=== PATIENT | female | born 1945 | race Caucasian/White ===

== ENCOUNTER 2022-08-23 13:04 | Outpatient (CLI) | payer MEDICARE, SELFPAY ==
--- NOTE | ~2022-08-23 | US_ITS ---
EXAMINATION: US carotid duplex BI DATE: 08/23/2022 14:16 INDICATION: Stroke. Carotid stenosis. Dizziness. TECHNIQUE: Grayscale, color Doppler, and pulsed Doppler images of the cervical carotid arteries were obtained. The degree of vessel stenosis is placed in one of the following categories: normal, <50%, 5 0-69%, >=70% but less than near-occlusion, near-occlusion, or total occlusion. Note that percent sten osis relative to normal distal artery lumen diameter is indirectly measured from velocity measurement s as described by Manjeet, et al. Radiology 2003; 229:340-346. COMPARISON: None. FINDINGS: RIGHT: The right common carotid artery (CCA) peak systolic velocity (PSV) is 69 cm/s. The right internal car otid artery (ICA) PSV is 110 cm/s. The right ICA end-diastolic velocity (EDV) is 19 cm/s. The right I CA/CCA PSV ratio is 1.6. Grayscale and color Doppler images yield an estimate of <50% diameter reduct ion from plaque in the ICA. The external carotid artery (ECA) PSV is 83 cm/s. There is antegrade flow in the right vertebral artery. LEFT: The left CCA PSV is 100 cm/s. The left ICA PSV is 175 cm/s. The left ICA EDV is 44 cm/s. The left ICA /CCA PSV ratio is 1.8. Grayscale and color Doppler images yield an estimate of 50-69% diameter reduct ion from plaque in the ICA. The ECA PSV is 58 cm/s. There is antegrade flow in the left vertebral art lani. IMPRESSION: 1. <50% stenosis in the right internal carotid artery. 2. 50-69% stenosis in the left internal carotid artery. Reviewed, dictated and finalized at location A.
== END 2022-08-23 13:05 | disposition home or self-care (01) ==
LOC: ANHIMG 13:11
PROVIDERS: PCP Family Medicine Sports Medicine; Visit Provider Internal Medicine Cardiovascular Disease
DX: I65.23 Occlusion and stenosis of bilateral carotid arteries (principal); R42 Dizziness and giddiness; Z86.73 Personal history of transient ischemic attack (TIA), and cerebral infarction without residual deficits
CPT/HCPCS: 93880

== ENCOUNTER 2022-10-03 16:22 | Observation (INO) | payer MEDICARE, SELFPAY ==
[2022-10-03] VITALS (36 sets, daily range): BP systolic 73–129; BP diastolic 40–100; PULSE 63–94; RESP 14–25; TEMP 36.5–36.7; O2SAT 95–100; BMI 23.2
--- NOTE | ~2022-10-03 | XR_ITS ---
Portable chest x-ray Comparison: None Clinical History: Weakness Findings: Probable prior right lung resection. No consolidation or pleural effusion evident. No pneu mothorax. Cardiomediastinal silhouette is unremarkable. Bones and soft tissues are unremarkable. Impression: No acute abnormality evident. Probable prior partial right lung resection. Correlate with surgical history. Reviewed, dictated and finalized at [facility]. Impression: No acute abnormality evident. Probable prior partial right lung resection. Correlate with surgical history.
--- NOTE | 2022-10-03 16:42 | ECG_ITS ---
Measurements Intervals [place] Rate: 72 P: 64 IA: 165 QRS: 54 QRSD: 89 T: 80 QT: 428 QTc: 470 Interpretive Statements SINUS RHYTHM POSSIBLE LEFT ATRIAL ENLARGEMENT [-0.1mV P-WAVE IN V1/V2] SEPTAL MYOCARDIAL INFARCTION , OF INDETERMINATE AGE [40+ ms Q WAVE IN V1/V2] ABNORMAL ECG NO PREVIOUS ECG AVAILABLE FOR COMPARISON Electronically Signed On 10-04-2022 10:37:01 CDT by Michael Lambert M.D.
--- NOTE | 2022-10-03 16:55 | ED.WEAKNESS ---
HPI - Weakness General Chief complaint: Weakness Stated complaint: weakness/ strep pos Time Seen by Provider: 10/03/22 16:42 Source: patient and RN notes reviewed Mode of arrival: ambulatory Limitations: no limitations History of Present Illness HPI Narrative: This is a 76 year old female with history of heart disease, lung cancer, hypertension who presents for evaluation of weakness. Her family is at bedside to assist with history. They report patient has been reporting cough , congestion and sore throat on Tuesday. They took patient to [facility] urgent care today because patient reported weakness, and she was found to have low BP and positive for strep. Patient reports cough for 6 months. She denies chest pain, shortness of breath, abdominal pain, nausea and vomiting. She reports previous history of CHF and high blood pressure but she has not taken any medication today. Related Data Allergies Allergy/AdvReac Type Severity Reaction Status Date / Time No Known Allergies Allergy Verified 10/03/22 16:30 Review of Systems Review of Systems: All systems reviewed & are unremarkable except as noted in HPI and below PMFSH Past Medical History Medical History (Updated 10/03/22 @ 22:20 by Briana Robles MD) Congestive heart failure Hypertension Lung cancer Social History Social History (Updated 10/03/22 @ 17:01 by Briana Robles MD) Smoking status: Never smoker Exam Const: General: no acute distress Orientation/consciousness: patient oriented x3 HENMT: Head: normal to inspection Face and sinus: normal facial exam Throat: posterior oropharynx normal and uvula midline Eyes: EOM: EOMs intact bilaterally Chest: Chest palpation & inspection: normal inspection of the chest Resp: Effort & Inspection: normal respiratory effort Auscultation: diminished lung sounds Cardio: Rate: regular rate Rhythm: regular rhythm Heart sounds: Murmur heart sound present GI: GI Palp: Yes Soft to palpation, No Tenderness to palpation present (GI), No Guarding due to palpation present (GI) and No Rigid due to palpation Auscultation: normal bowel sounds Neuro: General: patient oriented x3, moves all extremities and CN's II-XI intact bilaterally Extrem: General: normal to inspection and no edema Psych: Mental Status: mental status grossly normal Affect: normal affect Attitude: cooperative Course Consultations Consultation #1: I Discussed case with Dr. hogan. PAtient presented with weakness. Given 30 ml/kg bolus and BP has normalized and it has remained normal. She accepts patient to [facility] Date: 10/03/22 Time: 20:20 Vital Signs Vital signs: Vital Signs Temperature 98.1 F 10/03/22 16:25 Pulse Rate 94 10/03/22 16:25 Respiratory Rate 16 10/03/22 16:25 Blood Pressure 84/56 L 10/03/22 16:25 Pulse Oximetry 96 10/03/22 16:25 Temperature 98.1 F 10/03/22 16:25 Pulse Rate 69 10/03/22 21:19 Respiratory Rate 18 10/03/22 21:19 Blood Pressure 129/67 10/03/22 21:19 Pulse Oximetry 99 10/03/22 21:19 MDM - Weakness MDM Narrative Medical decision making narrative: Patient presented with weakness and hypotension. sepsis order set placed. Patient with mild leukocytosis and lactic acidosis of 2.2. STarted on NS bolus 30ml/kg bolus. given total 1900 ml which normalized patient's blood pressure, lactic acidosis resolved. UA shows UTI with positive nitrate, LE 2 + and 51-100 wbc. blood cultures drawn. and started on rocephin 1 g Differential Diagnosis Differential diagnosis: Likely acute myocardial infarction, hypoglycemia, sepsis, dehydration and other (UTI, pneumonia, covid) Medical Records Attestation: I reviewed the patient's medical records. Lab Data Attestation: I reviewed the patient's lab results. 10/03/22 16:45 10/03/22 16:45 Labs: Lab Results 10/03/22 10/03/22 10/03/22 Range/Units 16:45 17:17 18:39 WBC 11.6 H (4.5-10.0) K/mm3 RBC 4.0
[2022-10-03 16:59] LABS: Basophils Absolute Auto 0.1 K/mm3 (0.0-0.1); Basophils Percent Auto 0.4 % (0.2-1.2); Eosinophils Absolute Auto 0.3 K/mm3 (0-0.3); Eosinophils Percent Auto 2.2 % (0-4.4); Hematocrit 38.5 % (37.0-47.0); Hemoglobin 12.4 g/dL (12.0-15.0); Immature Granulocyte Absolute 0.05 K/mm3 (0.00-0.031); Immature Granulocyte Percent A 0.4 % (0-0.5); Lymphocytes Absolute Auto 2.31 K/mm3 (0.9-3.2); Lymphocytes Percent Auto 19.9 % (18.3-44.2); Mean Corpuscular HGB Conc 32.2 g/dl (32-36); Mean Corpuscular Hemoglobin 30.5 pg (26-34); Mean Corpuscular Volume 94.6 fl (80-100); Monocytes Absolute Auto 1.2 K/mm3 (0.1-0.6); Monocytes Percent Auto 10.2 % (2.6-8.5); Neutrophils Absolute Auto 7.8 K/mm3 (1.3-6.7); Neutrophils Percent Auto 66.9 % (45.5-73.1); Platelet Count Result 224 k/mm3 (150-375); Red Blood Count 4.07 M/mm3 (4.2-5.4); Red Cell Distribution Width 13.6 % (11.5-14.5); White Blood Count 11.6 K/mm3 (4.5-10.0)
[2022-10-03 17:06] LABS: Lactic Acid Reflex 2.2 mmol/L (0.7-2.0)
[2022-10-03 17:10] LABS: Alanine Aminotransferase 15 U/L (6-35); Albumin Level 3.9 g/dL (3.5-5.1); Alkaline Phosphatase 72 U/L (38-126); Anion Gap 6 mmol/L (8-16); Aspartate Amino Transferase 23 U/L (14-36); Bilirubin,Total 0.7 mg/dL (0.2-1.3); Blood Urea Nitrogen 8 mg/dL (7-17); CRP 4.2 mg/dL (<1.0); Calcium 8.3 mg/dL (8.4-10.2); Carbon Dioxide 28 mmol/L (22-30); Chloride 104 mmol/L (98-107); Estimated CRCL calculation 41 ml/min; Estimated Glomerular Filt Rate > 60; Glucose 112 mg/dL (65-110); Potassium 3.6 mmol/L (3.4-5.0); Sodium 138 mmol/L (137-145)
[2022-10-03 17:43] LABS: INR 0.9; Prothrombin Time 12.6 Seconds (11.1-14.7)
[2022-10-03 17:44] LABS: Partial Thromboplastin Time 30.4 SECONDS (22.3-36.8)
[2022-10-03 17:46] LABS: NT Pro B Type Natriuretic Pept 340 pg/mL (19.9-100); Troponin I < 0.012 ng/mL (0.000-0.034)
[2022-10-03 18:00] LABS: Influenza A QL RT-PCR Negative (Negative); Influenza B QL RT-PCR Negative (Negative); SARS-CoV-2 RNA PCR Negative (Negative)
[2022-10-03 19:34] LABS: Appearance Urine Cloudy (Clear); Bacteria Urine 4+ /hpf; Bilirubin Urine Negative (Negative); Blood Urine Trace (Negative); Color Urine Yellow (Yellow); Glucose Urine UA Negative (Negative); Ketones Urine Negative (Negative); Leukocyte Esterase Ur 2+ LEU/UL (Negative); Nitrate Urine Positive (Negative); Non Pathogenic Casts 0-2; Protein Urine Trace mg/dL (Negative); RBC Urine 0-2 /hpf (0-2); Specific Grav Ur 1.015 (1.001-1.035); Squamous Epithelial Cell Urine Occasional /hpf (Few); Urobilinogen Urine 0.2 mg/dL (<2.0); WBC Urine 51-100 /hpf; pH Urine 5.5 (5.0-9.0)
[2022-10-03 19:35] LABS: Add Urine Microscopic? YES
[2022-10-03] MEDS: SODIUM CHLORIDE 0.9% IV 1,000 ML 150 ML IV CONT (19:50)
[2022-10-03 19:55] LABS: Reflex Lactic Acid Yes or No Add Lactic
--- NOTE | 2022-10-03 20:22 | PC.NURSE ---
Pt received a total of 1900ml NS bolus. MAR unable to reflect this correctly and pharmacy unable to assist.
[2022-10-03 21:02] LABS: Lactic Acid 1.3 mmol/L (0.7-2.0)
--- NOTE | 2022-10-03 22:46 | ADMGEN ---
This patient, Angela Judd, was admitted to Medical Room 340-01. Patient/family oriented to hospital policies and general routines including ID bracelet, bed and alarms, visiting hours, pain management, procedures, bathroom and other care routines, personal items, smoking policy, room service/diet, and visiting hours. Information on how to activate the Rapid Response Team has been discussed. Patient/Family are encouraged to report perceived risks to care and to ask questions if they do not understand what they are told or what they should do.
[2022-10-04] VITALS: PULSE 78
--- NOTE | 2022-10-04 01:49 | PM.IMHP ---
H&P: HPI History of Present Illness Date/Time: 10/03/22 23:50 Chief Complaint: Cough and sore throat Narrative: 76-year-old female past medical history of mild dementia, COPD, lung cancer status post resection, essential hypertension, CVA, carotid stenosis and coronary artery disease who presented to the ER from a local urgent care accompanied by family due to cough sore throat and increased weakness. The patient reports that she has been feeling ill for about 3 weeks per the patient's report but only for 3 days per family report. ER note states the patient has been having persistent cough for 6 months as well. Where the patient reports the cough is been only for 3 weeks. She has had increased postnasal drip from baseline with associated cough. Cough is nonproductive and mild. She denies any shortness of breath or chest pain. She has not been having any fevers or chills. She does report shortness of breath. 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 Her family to [facility] urgent care for evaluation. At urgent care she was found to be hypotensive. They also checked a rapid strep which was found to be positive. The patient reports that last time she was diagnosed with strep it was many years ago. She denies any lightheadedness, nausea, vomiting or changes in bowel habits. She denies any urinary frequency or urgency. She does report a sensation of incomplete bladder emptying. On exam patient did have a palpable bladder but bladder scan only demonstrated 190 mL. She felt bad enough that she had not taken any of her home medications prior to coming to urgent care. Despite not taking her antihypertensives the patient was hypotensive on arrival to the ER with blood pressures as low as 73/40. She received 30 mL/kilos fluid bolus with improvement in her blood pressures up to the 120s over 60s. The family reports that the patient does have chronically low blood pressures in her usual blood pressure at home is usually in the 90 systolic. She reports that her weight is been stable. She states that she is disappointed that since she was diagnosed with all of her medical problems that she did not lose 5 lb. She reports that all of her friends who have been diagnosed with similar medical conditions have lost a significant amount of weight. She denies any recent ill contacts. She reports that she has been having difficulty with postnasal drip and has not felt quite herself ever since she caught COVID in April. She reports a fair appetite. She reports that she has chronically chilled all the time. She denies any known fevers. At the time of my evaluation the patient is alert oriented x4 in seems to be a good historian. 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 She reports that she recently moved down here from near [place] about 3 months ago. She is currently living with her ex- her son and her [id number] (or daughter). She states that they create a very stressful environment for her and yell at her frequently. She had a master's degree in the went back to school late in life to get her law degree. 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 Review of Systems Review of Systems: 12 systems were reviewed with pertinent positives and negatives per HPI. Except as documented in the HPI, all other systems were reviewed and are negative. [facility] Past Medical History Medical History (Updated 10/04/22 @ 02:16 by Jannie Mejía, DO) Carotid stenosis Carotid Dopplers 08/2022: Less than 50% stenosis right internal carotid 50-69% stenosis left internal carotid Chronic lower back pain Congestive heart failure COPD with emphysema Central lobar Coronary artery disease CVA (cerebral vascular accident) (~20
[2022-10-04] MEDS: ZOLPIDEM TARTRATE (*CRX) 5 MG TABLET 10 MG PO (02:00)
[2022-10-04] MEDS: diphenhydrAMINE HCl CAP 25 MG CAPSULE PO (02:02)
[2022-10-04] MEDS: SODIUM CHLORIDE 0.9% IV 1,000 ML 125 ML IV CONT (02:03)
[2022-10-04] MEDS: traMADol HCL (*CRX) 50 MG TABLET PO (02:57)
[2022-10-04 04:00] VITALS: PULSE 83
[2022-10-04 05:38] VITALS: BP 138/84; PULSE 75; RESP 14; TEMP 37.1; O2SAT 99
[2022-10-04 05:42] LABS: Basophils Percent Auto 0.3 % (0.2-1.2); Eosinophils Absolute Auto 0.2 K/mm3 (0-0.3); Eosinophils Percent Auto 2.4 % (0-4.4); Hematocrit 35.3 % (37.0-47.0); Hemoglobin 11.2 g/dL (12.0-15.0); Immature Granulocyte Absolute 0.03 K/mm3 (0.00-0.031); Immature Granulocyte Percent A 0.3 % (0-0.5); Lymphocytes Absolute Auto 2.11 K/mm3 (0.9-3.2); Lymphocytes Percent Auto 21.3 % (18.3-44.2); Mean Corpuscular HGB Conc 31.7 g/dl (32-36); Mean Corpuscular Volume 94.6 fl (80-100); Mean Platelet Volume 10.7 fl (7.4-10.4); Monocytes Absolute Auto 0.9 K/mm3 (0.1-0.6); Monocytes Percent Auto 9.3 % (2.6-8.5); Neutrophils Absolute Auto 6.6 K/mm3 (1.3-6.7); Neutrophils Percent Auto 66.4 % (45.5-73.1); Platelet Count Result 189 k/mm3 (150-375); Red Blood Count 3.73 M/mm3 (4.2-5.4); Red Cell Distribution Width 13.4 % (11.5-14.5); White Blood Count 9.9 K/mm3 (4.5-10.0)
[2022-10-04 05:53] LABS: Alanine Aminotransferase 12 U/L (6-35); Albumin Level 3.3 g/dL (3.5-5.1); Alkaline Phosphatase 70 U/L (38-126); Anion Gap 5 mmol/L (8-16); Aspartate Amino Transferase 18 U/L (14-36); Bilirubin,Total 0.7 mg/dL (0.2-1.3); Blood Urea Nitrogen 5 mg/dL (7-17); Calcium 7.6 mg/dL (8.4-10.2); Carbon Dioxide 24 mmol/L (22-30); Chloride 110 mmol/L (98-107); Estimated CRCL calculation 52 ml/min; Estimated Glomerular Filt Rate > 60; Glucose 102 mg/dL (65-110); Potassium 3.9 mmol/L (3.4-5.0); Sodium 139 mmol/L (137-145)
[2022-10-04] MEDS: DEXTROMETHORPHAN POLISTIREX 60 MG/10 ML SYRINGE PO (06:02)
[2022-10-04 09:30] VITALS: PULSE 100; RESP 14; O2SAT 99
[2022-10-04] MEDS: FLUTICASONE PROPIONATE 0.05% NA SPR 16 GM BTL (*BKC) 1 SPRAY NASAL ×2 (09:33→16:14)
[2022-10-04] MEDS: ATORVASTATIN 40 MG TABLET 80 MG PO (09:36)
[2022-10-04] MEDS: ISOSORBIDE MONONITRATE 30 MG TAB.ER.24H PO (09:37)
[2022-10-04] MEDS: POTASSIUM CHLORIDE 20 MEQ ER TABLET PO (09:37)
[2022-10-04] MEDS: lisinopriL 10 MG TABLET PO (09:37)
[2022-10-04] MEDS: MAGNESIUM OXIDE 200 MG TABLET PO (09:37)
[2022-10-04] MEDS: CLOPIDOGREL BISULFATE 75 MG TABLET PO (09:37)
[2022-10-04 09:38] VITALS: PULSE 100
[2022-10-04] MEDS: DONEPEZIL HCL 5 MG TABLET PO (09:38)
[2022-10-04] MEDS: atenoloL 50 MG TABLET PO (09:38)
[2022-10-04] MEDS: LORATADINE 10 MG TABLET PO (09:38)
[2022-10-04] MEDS: ASPIRIN 81 MG ENTERIC TABLET PO (09:38)
[2022-10-04] MEDS: diazePAM (*CRX) 5 MG TABLET 10 MG PO (09:39)
[2022-10-04] MEDS: ENOXAPARIN 40 MG/0.4 ML SYRINGE SUB-Q (09:40)
--- NOTE | 2022-10-04 12:25 | PM.CNPUL ---
Assessment and Plan Assessment and plan (1) Chronic cough: Code(s): R05.3 - Chronic cough Status: Acute Assessment and Plan: Patient with 5-7 months of chronic cough and is followed by an outpatient stitcher hand, Dr Steiner with [facility], for allergic rhinitis with the next appointment on 11/03/2022 at 10:15. Her cough is been unchanged. Patient is also followed for a 6 mm left lower lobe pulmonary nodule with no change between 06/02/2022 and 07/19/2022. She does complain of rhinitis and takes Claritin 10 mg a day, she has been prescribed fluticasone but is unsure if she is taking this. she also has a prescription for Tessalon Perles 100 mg p.o. t.i.d. p.r.n. but is not taking this. Agree with re-initiated in fluticasone nasal spray 1 spray each nares twice a day. Continue Claritin 10 mg p.o. q.day. I will start Tessalon Perles 200 mg PO TID for now. the patient states she has a history of GERD that is controlled on famotidine and I agree with continued treatment. she denies any clinical history of aspiration. She does have COPD and is treated with Symbicort and Spiriva as an outpatient and agree with treatment with Advair 115-21 at 2 puffs q.12 hours and I will restart her long-acting muscarinic antagonist with the hospital equivalent of Spiriva using formulary incruse ellipta. Discussed with Dr. Hussein, will sign off. Call with questions. (2) Lung nodule: Code(s): R91.1 - Solitary pulmonary nodule Status: Acute Assessment and Plan: Patient's out pateint stitcher hand, Dr. Manzano, is following the patient for a 6 mm left lower lobe pulmonary nodule on CT scan from 07/19/2022 that was unchanged compared to CT scan on 06/02/2022 (both ordered by Dr. Manzano, [facility]) and last seen on 08/30/2022 in clinic with a scheduled follow-up on 11/03/2022. We do not have these images. Chest x-ray at this time does not show any large nodules or masses. Patient should follow up with her stitcher hand on 11/03/2022. History of Present Illness History of Present Illness Consult date: 10/04/22 Chief complaint: UTI,Hypotension Narrative: 10/04/2022: This is a new pulmonary consult for cough. 76-year-old with a history of COPD diagnosed 1999, right lung cancer status post resection on 08/08/2013 (the patient was told she had a grade a cancer and not to worry), allergic rhinitis, 6 mm left lower lobe pulmonary nodule on CT scan from 07/19/2022 that was unchanged compared to CT scan on 06/02/2022 who is followed by [facility], Dr. Manzano and last seen on 08/30/2022 with a scheduled follow-up on 11/03/2022. patient reports a history of cough for 5-7 months. She will cough 1 time an hour and produce phlegm 2 to 3 times a day. The phlegm is described as yellow are green and never with hemoptysis. The cough is made worse by humid air and is made better by exercising. The cough is unchanged by eating solid foods or drinking liquids. The patient states she does have GERD as well as a duodenal ulcer and currently has no symptoms on famotidine 20 mg q.h.s.. Tessalon Perles 100 mg p.o. t.i.d. P.r.n. have been prescribed which she intermittently takes and she says that this does not provide her much relief. The patient has COPD diagnosed in the year 1999 and states that currently she has no respiratory limitations in her activities of daily living and can walk 6 blocks. Patient is maintained on Symbicort 160-4.5 at 2 puffs b.i.d. and Spiriva 2.5 mcg at 2 puffs q.day. Patient rarely takes rescue albuterol. The patient has a deviated septum and allergic rhinitis and is maintained on loratadine 10 mg a day, and fluticasone nasal spray. Patient is currently admitted for low blood pressure with positive strep antigen and UTI and being treated with ceftriaxone. Room air saturations are 99% Review of Systems Constitutional: Constitutional: Reports no additional constitutional complaints Eyes:
--- NOTE | 2022-10-04 13:53 | PM.DS ---
DS: Admitting Diagnosis Discharge Date 10/04/2022 Admitting Diagnosis Cough and shortness of breath DS: Discharge Diagnosis Discharge Diagnosis (1) Hypotension due to hypovolemia: Code(s): I95.89 - Other hypotension; E86.1 - Hypovolemia Status: Acute (2) Bacteriuria with pyuria: Code(s): R82.71 - Bacteriuria; R82.81 - Pyuria Status: Acute (3) Strep pharyngitis: Code(s): J02.0 - Streptococcal pharyngitis Status: Acute (4) Postnasal drip: Code(s): R09.82 - Postnasal drip Status: Acute Plan Patient had hypotension due to hypovolemia. Hypotension has resolved after IV fluid hydration. The patient reports improvement in her symptoms. She no longer feels as weak. Will hold the patient's home lisinopril. Will resume patient's home atenolol. Will continue home Imdur. Hypovolemia likely due to patient's strep infection and sore throat leading to decreased oral intake. Will continue Rocephin. Patient does have pyuria with bacteriuria but denies any urinary symptoms. Either way the patient's urine pathogens should be covered by Rocephin. Urine cultures pending. Blood cultures also pending. The patient reports persistent postnasal drip ever since she had COVID in April. She states that she cannot have any other antihistamines except for Benadryl. She happens be on clear 10 at home as well. Patient is already on Flonase b.i.d. at home. Will continue with supportive care. The patient does have coronary disease but denies any history of chest pain. Will continue patient's home cardiac medications as discussed above. The patient also does have heart failure but appears to be volume depleted. Will hold home Lasix and continue IV fluid hydration but will decrease rate to 75 mL an hour. Patient is adamant that she received her home Ambien. She states she cannot sleep without it. Ambien has been ordered. Patient does have chronic cough. Some question of there is any acute cough. The patient denies a cough is unchanged from baseline. Will continue patient's home nebulizers and inhalers. Patient is not wheezing and does not have evidence of acute COPD exacerbation. Will continue to monitor. MEDICAL DECISION MAKING NARRATIVE History obtained from: Patient and external records History from independent sources: ER provider External chart review: Outpatient consult, urgent care record New problems addressed: Hypotension, strep pharyngitis, abnormal urine Chronic illnesses addressed: COPD, CHF, dementia Independent interpretation of studies: Chest x-ray, EKG Discussion of management with other providers: ER provider Comorbidities complicating care: Coronary artery disease, dementia, anxiety Diagnostic tests considered but not ordered: None Shared decision making: Care and treatment options were discussed with the patient at bedside. Patient agrees with plan of care. Risk of complication: Recurrent hypotension, bacteremia or cardiac compromise. Time spent in patient care: 70 minutes DS: Summary Hospital Course Reason for hospitalization: Cough and sore throat Narrative: 76-year-old female past medical history of mild dementia, COPD, lung cancer status post resection, essential hypertension, CVA, carotid stenosis and coronary artery disease who presented to the ER from a local urgent care accompanied by family due to cough sore throat and increased weakness.? The patient reports that she has been feeling ill for about 3 weeks per the patient's report but only for 3 days per family report.? ER note states the patient has been having persistent cough for 6 months as well.? Where the patient reports the cough is been only for 3 weeks.? She has had increased postnasal drip from baseline with associated cough.? Cough is nonproductive and mild.? She denies any shortness of breath or chest pain.? She has not been having any fevers or chills.? She does report shortness of breath.? She has b
[2022-10-04 14:00] VITALS: BP 125/79; PULSE 69; RESP 18; TEMP 37.6; O2SAT 98
[2022-10-04] MEDS: BENZONATATE 100 MG CAPSULE 200 MG PO (16:13)
== END 2022-10-04 18:35 | disposition home or self-care (01) ==
LOC: ANHED 16:56 → ANH3MED 22:20
PROVIDERS: Admitting Provider Internal Medicine; Emergency Provider General Practice; PCP Family Medicine Sports Medicine; Visit Provider Family Medicine
DX: I95.89 Other hypotension (principal); R82.71 Bacteriuria; J02.0 Streptococcal pharyngitis; R09.82 Postnasal drip; E86.0 Dehydration; E86.1 Hypovolemia; N39.0 Urinary tract infection, site not specified; B96.1 Klebsiella pneumoniae [K. pneumoniae] as the cause of diseases classified elsewhere; R53.1 Weakness; Z20.822 Contact with and (suspected) exposure to COVID-19; R94.31 Abnormal electrocardiogram [ECG] [EKG]; Z90.2 Acquired absence of lung [part of]; E78.5 Hyperlipidemia, unspecified; R91.1 Solitary pulmonary nodule; F03.90 Unspecified dementia, unspecified severity, without behavioral disturbance, psychotic disturbance, mood disturbance, and anxiety; M81.0 Age-related osteoporosis without current pathological fracture; G89.29 Other chronic pain; E55.9 Vitamin D deficiency, unspecified; M54.9 Dorsalgia, unspecified; I11.0 Hypertensive heart disease with heart failure; I50.9 Heart failure, unspecified; I65.29 Occlusion and stenosis of unspecified carotid artery; I25.10 Atherosclerotic heart disease of native coronary artery without angina pectoris; Z95.5 Presence of coronary angioplasty implant and graft; Z87.891 Personal history of nicotine dependence; Z86.16 Personal history of COVID-19; Z85.118 Personal history of other malignant neoplasm of bronchus and lung; Z86.73 Personal history of transient ischemic attack (TIA), and cerebral infarction without residual deficits; Z79.51 Long term (current) use of inhaled steroids; Z79.82 Long term (current) use of aspirin; Z79.02 Long term (current) use of antithrombotics/antiplatelets; Z79.899 Other long term (current) drug therapy; Z82.49 Family history of ischemic heart disease and other diseases of the circulatory system
CPT/HCPCS: 36415; 71045; 80053; 81001; 83605; 83880; 84484; 85025; 85610; 85730; 86140; 87040; 87077; 87086; 87186; 87636; 93005; 96361; 96365; 96372; 99285; A9270; G0378; J0696; J1650; J7030

== ENCOUNTER 2022-11-08 19:51 | Emergency (ER) | payer MEDICARE, SELFPAY ==
[2022-11-08] VITALS (10 sets, daily range): BP systolic 120–122; BP diastolic 83–93; PULSE 81–108; RESP 13–33; TEMP 36.8; O2SAT 95–100
--- NOTE | ~2022-11-08 | CT_ITS ---
EXAMINATION: CT brain wo con DATE: 11/08/2022 22:48 INDICATION: dizziness . TECHNIQUE: Computed tomography (CT) of the head was performed without intravenous contrast. The mA wa s adjusted according to patient size. Iterative reconstruction technique was employed. The dose-lengt h product was 605.33 mGy-cm. COMPARISON: None. FINDINGS: No acute intracranial hemorrhage or extra-axial fluid collection. No hydrocephalus, mass, or herniation. No acute ischemic infarct. Unremarkable dural venous sinus attenuation. No acute osseous abnormality. The aerated spaces are clear. Moderate atrophy and mild chronic white matter change. Atherosclerotic intracranial calcification. Ch ronic left basal ganglia lacunar infarcts. Bilateral lens replacements. IMPRESSION: No acute intracranial process. Reviewed, dictated and finalized at location K.
--- NOTE | 2022-11-08 19:58 | ECG_ITS ---
Measurements Intervals [place] Rate: 101 P: 77 HI: 157 QRS: 35 QRSD: 76 T: 67 QT: 341 QTc: 444 Interpretive Statements SINUS TACHYCARDIA LEFT ATRIAL ENLARGEMENT CANNOT RULE OUT SEPTAL INFARCT, AGE INDETERMINATE ABNORMAL ECG COMPARED TO ECG 10/03/2022 16:36:22 SINUS TACHYCARDIA NOW PRESENT Electronically Signed On 11-08-2022 21:27:46 CDT by Henry Jasso D.O.
[2022-11-08 20:38] LABS: Basophils Percent Auto 0.4 % (0.2-1.2); Eosinophils Absolute Auto 0.2 K/mm3 (0-0.3); Eosinophils Percent Auto 3.4 % (0-4.4); Hematocrit 45.6 % (37.0-47.0); Hemoglobin 14.9 g/dL (12.0-15.0); Immature Granulocyte Absolute 0.02 K/mm3 (0.00-0.031); Immature Granulocyte Percent A 0.3 % (0-0.5); Lymphocytes Absolute Auto 2.08 K/mm3 (0.9-3.2); Lymphocytes Percent Auto 29.8 % (18.3-44.2); Mean Corpuscular HGB Conc 32.7 g/dl (32-36); Mean Corpuscular Hemoglobin 29.9 pg (26-34); Mean Corpuscular Volume 91.6 fl (80-100); Mean Platelet Volume 10.3 fl (7.4-10.4); Monocytes Absolute Auto 0.6 K/mm3 (0.1-0.6); Monocytes Percent Auto 8.3 % (2.6-8.5); Neutrophils Percent Auto 57.8 % (45.5-73.1); Platelet Count Result 208 k/mm3 (150-375); Red Blood Count 4.98 M/mm3 (4.2-5.4); Red Cell Distribution Width 13.8 % (11.5-14.5)
[2022-11-08 20:43] LABS: Alanine Aminotransferase 20 U/L (6-35); Albumin Level 4.6 g/dL (3.5-5.1); Alkaline Phosphatase 84 U/L (38-126); Anion Gap 11 mmol/L (8-16); Aspartate Amino Transferase 28 U/L (14-36); Bilirubin,Total 0.8 mg/dL (0.2-1.3); Blood Urea Nitrogen 17 mg/dL (7-17); Calcium 9.3 mg/dL (8.4-10.2); Carbon Dioxide 26 mmol/L (22-30); Chloride 103 mmol/L (98-107); Estimated CRCL calculation 41 ml/min; Estimated Glomerular Filt Rate > 60; Glucose 119 mg/dL (65-110); Potassium 3.8 mmol/L (3.4-5.0); Sodium 140 mmol/L (137-145)
--- NOTE | 2022-11-08 23:17 | PC.NURSE ---
pt care transferred to [facility]IM[facility]. all questions answered
[2022-11-09] MEDS: traMADol HCL (*CRX) 50 MG TABLET PO (00:24)
--- NOTE | 2022-11-09 00:26 | ED.GENADULT ---
HPI - General Adult General Chief complaint: Dizziness Stated complaint: Dizzy Time Seen by Provider: 11/08/22 22:11 History of Present Illness HPI narrative: Patient is a 77-year-old female who presents the emergency department with chief complaint of headache and possible TIA. Patient reports that she had an episode where she felt a chin over her head and reports that she felt some numbness and tingling the patient reports that she also was extremely weak and having difficulty ambulating. Patient states that she has had similar episodes like this before whenever she had TIAs and reports that the symptoms have now resolved. Patient reports she takes aspirin and Plavix patient reports that she had no changes in her medications does report that she has fairly recently moved down here from [place] Home Medications Medication Instructions Recorded Confirmed albuterol sulfate 90 mcg/actuation 1 puff inhalation Q4H PRN 10/03/22 10/03/22 aerosol inhaler (Proventil HFA) Shortness Of Breath aspirin 81 mg tablet 81 mg PO DAILY 10/03/22 10/03/22 atenolol 50 mg tablet 50 mg PO DAILY 10/03/22 10/03/22 atorvastatin 80 mg tablet 80 mg PO DAILY 10/03/22 10/03/22 budesonide-formoterol HFA 160 2 puff inhalation Q12H 10/03/22 10/03/22 mcg-4.5 mcg/actuation aerosol inhaler (Symbicort) clopidogrel 75 mg tablet 75 mg PO DAILY 10/03/22 10/03/22 codeine 20 mg-guaifenesin 200 mg/5 5 ml PO TID PRN Cough 10/03/22 10/03/22 mL oral liquid diazepam 10 mg tablet 10 mg PO DAILY 10/03/22 10/03/22 donepezil 5 mg tablet 5 mg PO DAILY 10/03/22 10/03/22 ergocalciferol (vitamin D2) 1,250 50,000 unit PO DAILY 10/03/22 10/03/22 mcg (50,000 unit) capsule famotidine 20 mg tablet 20 mg PO HS 10/03/22 10/03/22 fluticasone propionate 50 1 spray intranasal BID 10/03/22 10/03/22 mcg/actuation nasal spray,suspension furosemide 20 mg tablet 20 mg PO DAILY 10/03/22 10/03/22 isosorbide mononitrate 30 mg 30 mg PO DAILY 10/03/22 10/03/22 tablet,extended release 24 hr lisinopril 10 mg tablet 10 mg PO DAILY 10/03/22 10/03/22 loratadine 10 mg tablet 10 mg PO DAILY 10/03/22 10/03/22 magnesium oxide 250 mg PO DAILY 10/03/22 10/03/22 nitroglycerin 0.4 mg sublingual 0.4 mg sublingual Q5MIN PRN Chest 10/03/22 10/03/22 tablet Pain potassium chloride 20 mEq 20 meq PO DAILY 10/03/22 10/03/22 tablet,extended release(part/cryst) tramadol 50 mg tablet 50 mg PO BID PRN Pain (Scale Score 10/03/22 10/03/22 4-6) zolpidem 10 mg tablet 10 mg PO HS 10/03/22 10/03/22 Allergies Allergy/AdvReac Type Severity Reaction Status Date / Time No Known Allergies Allergy Verified 11/08/22 21:38 Review of Systems Review of Systems: A 10 system review of systems was completed on the patient and is negative except for what is stated in the HPI. Nursing and ancillary documentation was reviewed. [facility] Past Medical History Medical History Carotid stenosis Carotid Dopplers 08/2022: Less than 50% stenosis right internal carotid 50-69% stenosis left internal carotid Chronic lower back pain Congestive heart failure COPD with emphysema Central lobar Coronary artery disease CVA (cerebral vascular accident) (~2014) Dementia Diverticulitis Essential hypertension Gastric ulcer Glaucoma History of GI bleed Hyperlipidemia Lumbar stenosis Lung cancer Status post right upper lobe lobectomy in approximately 2009 Obstructive sleep apnea Osteoporosis Pelvic fracture Vertebral artery stenosis Vitamin D deficiency Surgical History Surgical History History of heart artery stent x13 History of laminectomy History of lobectomy of lung (~2009) Right upper lobe Status post cataract extraction of both eyes with insertion of intraocular lens Family History Family History Grandpar
[2022-11-09 02:07] VITALS: O2SAT 97
[2022-11-09 02:08] VITALS: BP 112/87
[2022-11-09 02:42] VITALS: PULSE 76; RESP 14
== END 2022-11-09 02:42 | disposition home or self-care (01) ==
PROVIDERS: Emergency Provider Emergency Medicine; PCP Family Medicine Sports Medicine
DX: G45.9 Transient cerebral ischemic attack, unspecified (principal); F03.90 Unspecified dementia, unspecified severity, without behavioral disturbance, psychotic disturbance, mood disturbance, and anxiety; I50.9 Heart failure, unspecified; I25.10 Atherosclerotic heart disease of native coronary artery without angina pectoris; I11.0 Hypertensive heart disease with heart failure; I65.23 Occlusion and stenosis of bilateral carotid arteries; I65.09 Occlusion and stenosis of unspecified vertebral artery; J43.9 Emphysema, unspecified; E78.5 Hyperlipidemia, unspecified; H40.9 Unspecified glaucoma; G47.33 Obstructive sleep apnea (adult) (pediatric); E55.9 Vitamin D deficiency, unspecified; Z85.118 Personal history of other malignant neoplasm of bronchus and lung; Z86.73 Personal history of transient ischemic attack (TIA), and cerebral infarction without residual deficits; Z87.891 Personal history of nicotine dependence; Z95.5 Presence of coronary angioplasty implant and graft; Z90.2 Acquired absence of lung [part of]; Z98.42 Cataract extraction status, left eye; Z98.41 Cataract extraction status, right eye; Z96.1 Presence of intraocular lens; Z79.02 Long term (current) use of antithrombotics/antiplatelets; Z79.82 Long term (current) use of aspirin; R00.0 Tachycardia, unspecified; R94.31 Abnormal electrocardiogram [ECG] [EKG]
CPT/HCPCS: 36415; 70450; 80053; 85025; 93005; 99284; A9270